=== PATIENT | male | born 1955 | race Caucasian/White ===

== ENCOUNTER 2021-01-06 08:05 | Emergency (ER) | payer OTHER ==
[~2021-01-06] VITALS: Ht 177.8 cm; Wt 60.0 kg
[2021-01-06 08:58] VITALS: BP 110/89
[2021-01-06 09:11] LABS: HEMATOCRIT 42.9 % (39.0-50.0); HEMOGLOBIN 13.6 g/dl (14.0-18.0); IMMATURE GRANULOCYTES 0.4 % (0.0-5.0); MEAN CELL VOLUME 93.1 fL CALC (80.0-100.0); MEAN CORPUSCULAR HGB 29.5 pG CALC (26.0-32.0); MEAN CORPUSCULAR HGB CONC 31.7 g/dL CAL (32.0-36.0); NEUT# 4.67 thou/uL (1.82-7.42); RED BLOOD COUNT 4.61 mill/uL (4.70-6.10); RED CELL DISTRI WIDTH 13.5 % (11.5-15.5)
[2021-01-06 09:26] LABS: ALBUMIN 4.1 g/dL (3.2-5.0); ALKALINE PHOSPHATASE 75 u/l (38-126); ANION GAP 11 (6-22 (CALC)); BILIRUBIN, TOTAL 0.5 mg/dL (0.0-1.4); BUN 14 mg/dL (8-23); BUN/CREATININE RATIO 16 (12-20 (CALC)); CARBON DIOXIDE 28 mmol/l (22-30); CHLORIDE 102 mmol/l (95-108); CREATININE 0.9 mg/dL (0.7-1.3); GFR > 60 ML/MIN (>=60 (CALC)); GFR FOR AFR.AMER. > 60 ML/MIN (>=60 (CALC)); POTASSIUM 4.2 mmol/l (3.5-5.1); SGOT/AST 21 u/l (19-48); SODIUM 138 mmol/l (137-146); TOTAL PROTEIN 7.2 g/dL (6.3-8.2)
[2021-01-06] MEDS ORDERED: AMOXICILLIN500 MG PO (09:29)
== END 2021-01-06 10:00 | disposition home or self-care (01) ==
LOC: ED 08:05
PROVIDERS: Emergency Medicine
DX: L03.115 Cellulitis of right lower limb (principal); I10 Essential (primary) hypertension; J44.9 Chronic obstructive pulmonary disease, unspecified; F17.210 Nicotine dependence, cigarettes, uncomplicated

== ENCOUNTER 2022-12-12 23:28 | Inpatient (IN) | payer MEDICARE, MEDICAID ==
[~2022-12-12] VITALS: Ht 177.8 cm; Wt 59.0 kg
[~2022-12-12 23:28] MED LIST: AMOXICILLIN500 MG PO
[2022-12-12 23:56] LABS: BASO% 0.6 % (0-3); EOS% 15.4 % (0-8); HEMOGLOBIN 13.4 g/dl (14.0-18.0); IMMATURE GRANULOCYTES 0.8 % (0.0-5.0); LYMPH% 11.2 % (15-41); MEAN CELL VOLUME 93.7 fL CALC (80.0-100.0); MEAN CORPUSCULAR HGB 29.2 pG CALC (26.0-32.0); MEAN CORPUSCULAR HGB CONC 31.2 g/dL CAL (32.0-36.0); MONO% 9.5 % (2-13); NEUT# 6.28 thou/uL (1.82-7.42); NEUT% 62.5 % (42-76); RED BLOOD COUNT 4.59 mill/uL (4.70-6.10); RED CELL DISTRI WIDTH 13.3 % (11.5-15.5)
[2022-12-13] VITALS (82 sets, daily range): BP systolic 88–136; BP diastolic 47–95
[2022-12-13 00:09] LABS: ALBUMIN 4.1 g/dL (3.2-5.0); ALKALINE PHOSPHATASE 100 u/l (38-126); ANION GAP 17 (6-22 (CALC)); BUN 15 mg/dL (8-23); BUN/CREATININE RATIO 18 (12-20 (CALC)); CARBON DIOXIDE 25 mmol/l (22-30); CHLORIDE 96 mmol/l (95-108); CREATININE 0.9 mg/dL (0.7-1.3); GFR FOR AFR.AMER. > 60 ML/MIN (>=60 (CALC)); GFR OTHER RACES > 60 ML/MIN (>=60 (CALC)); POTASSIUM 4.5 mmol/l (3.5-5.1); SODIUM 133 mmol/l (137-146); TOTAL PROTEIN 6.9 g/dL (6.3-8.2)
[2022-12-13 00:17] LABS: BILIRUBIN, TOTAL 0.2 mg/dL (0.2-1.3); SGOT/AST 52 u/l (19-48)
[2022-12-13 03:43] LABS: URINE BILIRUBIN - DIPSTICK NEGATIVE (NEGATIVE); URINE BLOOD DIPSTICK SMALL (NEGATIVE); URINE COLOR YELLOW; URINE GLUCOSE - DIPSTICK 250 mg/dL (NEGATIVE); URINE KETONE NEGATIVE (NEGATIVE); URINE LEUK ESTERASE NEGATIVE (NEGATIVE); URINE PROTEIN - DIPSTICK 30 mg/dL (NEG-TRACE); URINE SPECIFIC GRAVITY 1.025; URINE UROBILINOGEN - DIPSTICK 0.2 E.U./dL (0.2)
[2022-12-13 03:47] LABS: URINE NITRITE - DIPSTICK NEGATIVE (Negative)
[2022-12-13 03:51] LABS: URINE BACTERIA FEW hpf; URINE MUCUS FEW hpf (NONE-FEW); URINE SQUAMOUS EPITHELIAL CELL FEW EPI/hpf (0-FEW)
[2022-12-13] MEDS ORDERED: TELMISARTAN40 MG PO (05:08)
[2022-12-13] MEDS ORDERED: PROVENTIL HFA108 MCG (05:10)
[2022-12-13] MEDS ORDERED: NAPROXEN500 MG PO (05:11)
[2022-12-14] VITALS (23 sets, daily range): BP systolic 88–121; BP diastolic 51–92
[2022-12-14 05:39] LABS: HEMATOCRIT 37.3 % (39.0-50.0); HEMOGLOBIN 11.9 g/dl (14.0-18.0); MEAN CELL VOLUME 91.6 fL CALC (80.0-100.0); MEAN CORPUSCULAR HGB 29.2 pG CALC (26.0-32.0); MEAN CORPUSCULAR HGB CONC 31.9 g/dL CAL (32.0-36.0); RED BLOOD COUNT 4.07 mill/uL (4.70-6.10); RED CELL DISTRI WIDTH 13.4 % (11.5-15.5)
[2022-12-14 06:03] LABS: ALBUMIN 3.5 g/dL (3.2-5.0); ALKALINE PHOSPHATASE 61 u/l (38-126); ANION GAP 10 (6-22 (CALC)); BUN 19 mg/dL (8-23); BUN/CREATININE RATIO 26 (12-20 (CALC)); CARBON DIOXIDE 28 mmol/l (22-30); CHLORIDE 98 mmol/l (95-108); CREATININE 0.7 mg/dL (0.7-1.3); GFR FOR AFR.AMER. > 60 ML/MIN (>=60 (CALC)); GFR OTHER RACES > 60 ML/MIN (>=60 (CALC)); MAGNESIUM 1.7 mg/dL (1.6-2.3); POTASSIUM 4.6 mmol/l (3.5-5.1); SGOT/AST 33 u/l (19-48); SODIUM 131 mmol/l (137-146)
[2022-12-14 06:04] LABS: BILIRUBIN, TOTAL 0.1 mg/dL (0.2-1.3)
[2022-12-14] MEDS ORDERED: PROVENTIL HFA108 MCG IN (10:21)
[2022-12-14] MEDS ORDERED: PREDNISONE50 MG PO (10:22)
[2022-12-14] MEDS ORDERED: IPRATROPIU0.5 MG/3 M IN (10:22)
[2022-12-14] MEDS ORDERED: KEFLEX500 MG PO (10:23)
[2022-12-14] MEDS ORDERED: ZPAK PO (10:23)
[2022-12-14] MEDS ORDERED: MUCUS+CHES200 MG/10 PO (10:25)
[2022-12-14] MEDS ORDERED: NICOTINE TOP (10:48)
== END 2022-12-14 11:40 | disposition home or self-care (01) | DRG 193 ==
LOC: ED 23:28 → ED-I 12-13 03:59 → ED 12-13 04:05 → ICU 12-13 04:07 → ED 12-13 04:26 → ICU 12-14 11:40
PROVIDERS: Family Medicine; ADMIT Internal Medicine; ATTEND Internal Medicine
PROC: 5A09357 Assistance with Respiratory Ventilation, Less than 24 Consecutive Hours, Continuous Positive Airway Pressure (ICD-10-PCS; principal; 2022-12-12)
DX: J18.9 Pneumonia, unspecified organism (principal); J96.01 Acute respiratory failure with hypoxia; J96.02 Acute respiratory failure with hypercapnia; J44.1 Chronic obstructive pulmonary disease with (acute) exacerbation; J44.0 Chronic obstructive pulmonary disease with (acute) lower respiratory infection; I10 Essential (primary) hypertension; F17.210 Nicotine dependence, cigarettes, uncomplicated; Z86.16 Personal history of COVID-19; Z20.822 Contact with and (suspected) exposure to COVID-19
CPT/HCPCS: J1650

== ENCOUNTER 2024-05-15 09:40 | Inpatient (IN) | payer MEDICARE, MEDICAID ==
[~2024-05-15] VITALS: Ht 177.8 cm; Wt 58.4 kg
[2024-05-15] VITALS (62 sets, daily range): BP systolic 72–115; BP diastolic 43–85
[~2024-05-15 09:40] MED LIST changes: +IPRATROPIU0.5 MG/3 M IN; +KEFLEX500 MG PO; +MUCUS+CHES200 MG/10 PO; +NAPROXEN500 MG PO; +NICOTINE TOP; +PREDNISONE50 MG PO; +PROVENTIL HFA108 MCG; +PROVENTIL HFA108 MCG IN; +TELMISARTAN40 MG PO; +ZPAK PO
[2024-05-15] MEDS ORDERED: IPRATROPIUM-Albuterol 0.5MG-2.5MG/3 ML NEB ONE ×2 (09:45)
[2024-05-15] MEDS ORDERED: AZITHROMYCIN 500 MG in SODIUM CHLORIDE 0.9% 250 ML IV ONE (09:45)
[2024-05-15 10:25] LABS: HEMATOCRIT 33.2 % (39.0-50.0); IMMATURE GRANULOCYTES 0.7 % (0.0-5.0); LYMPH% 1.3 % (15-41); MEAN CELL VOLUME 86.9 fL CALC (80.0-100.0); MEAN CORPUSCULAR HGB 28.8 pG CALC (26.0-32.0); MEAN CORPUSCULAR HGB CONC 33.1 g/dL CAL (32.0-36.0); MONO% 0.8 % (2-13); NEUT# 21.12 thou/uL (1.82-7.42); NEUT% 97.2 % (42-76); RED BLOOD COUNT 3.82 mill/uL (4.70-6.10); RED CELL DISTRI WIDTH 14.7 % (11.5-15.5)
[2024-05-15] MEDS ORDERED: SODIUM CHLORIDE 0.9% 1,000 ML IV ONE ×2 (10:35→10:40)
[2024-05-15] MEDS ORDERED: NOREPINEPHRINE BITARTRATE 4 MG in DEXTROSE 5% 250 ML IV ONE (10:40)
[2024-05-15] MEDS ORDERED: SODIUM CHLORIDE 0.9% 500 ML IV ONE ×2 (10:40→13:50)
[2024-05-15 10:52] LABS: POTASSIUM 3.7 mmol/l (3.5-5.1)
[2024-05-15 10:58] LABS: ALBUMIN 2.1 g/dL (3.2-5.0); BILIRUBIN, TOTAL 1.6 mg/dL (0.2-1.3); CREATININE 2.9 mg/dL (0.7-1.3); TOTAL PROTEIN 4.6 g/dL (6.3-8.2)
[2024-05-15] MEDS ORDERED: CEFEPIME HYDROCHLORIDE 2 GM in SODIUM CHLORIDE 0.9% 100 ML IV ONE (11:10)
[2024-05-15 12:23] LABS: URINE BLOOD DIPSTICK Small (NEGATIVE); URINE COLOR Dark yellow; URINE GLUCOSE - DIPSTICK Negative (NEGATIVE); URINE KETONE Trace mg/dL (NEGATIVE); URINE LEUK ESTERASE Negative (NEGATIVE); URINE NITRITE - DIPSTICK Negative (Negative); URINE PROTEIN - DIPSTICK 100 mg/dL (NEG-TRACE)
[2024-05-15 12:29] LABS: URINE CASTS FEW lpf (NONE-RARE); URINE COARSE GRANULAR CAST MODERATE lpf; URINE RBC 0-2 RBC/hpf (0-5); URINE WBC 0-2 WBC/hpf (0-5)
[2024-05-15] MEDS ORDERED: MAGNESIUM HYDROXIDE 30 ML UDC PO PRN (13:45)
[2024-05-15] MEDS ORDERED: ACETAMINOPHEN 325 MG/TAB PO PRN (13:45)
[2024-05-15] MEDS ORDERED: SODIUM CHLORIDE 0.9% 1,000 ML IV PRN (13:45)
[2024-05-15] MEDS ORDERED: SODIUM CHLORIDE 0.9% 500 ML IV PRN (13:50)
[2024-05-15] MEDS ORDERED: NOREPINEPHRINE BITARTRATE 4 MG in DEXTROSE 5% 250 ML IV PRN (13:50)
[2024-05-15] MEDS ORDERED: methylPREDNISolone Sod Succ 40 MG/ML SDV IV SCH (14:00)
[2024-05-15] MEDS ORDERED: IPRATROPIUM BROMIDE 0.5 MG/2.5 ML SOL IN SCH (15:00)
[2024-05-15] MEDS ORDERED: LEVALBUTEROL HCL 1.25 MG/3 ML VIAL NEB SCH (15:00)
[2024-05-15] MEDS ORDERED: BENZOCAINE-MENTHOL (MOUTH-THRO 1 LOZ LOZ PO PRN (20:20)
[2024-05-15] MEDS ORDERED: Heparin SODIUM (Porcine) 5,000 UNITS/ML SDV SC SCH (21:00)
[2024-05-16] VITALS (48 sets, daily range): BP systolic 86–137; BP diastolic 55–88
[2024-05-16 05:01] LABS: HEMATOCRIT 29.9 % (39.0-50.0); IMMATURE GRANULOCYTES 1.1 % (0.0-5.0); LYMPH% 1.4 % (15-41); MEAN CELL VOLUME 85.4 fL CALC (80.0-100.0); MEAN CORPUSCULAR HGB 28.6 pG CALC (26.0-32.0); MEAN CORPUSCULAR HGB CONC 33.4 g/dL CAL (32.0-36.0); MONO% 1.2 % (2-13); NEUT# 22.48 thou/uL (1.82-7.42); NEUT% 96.3 % (42-76); RED BLOOD COUNT 3.5 mill/uL (4.70-6.10); RED CELL DISTRI WIDTH 15.1 % (11.5-15.5)
[2024-05-16 05:11] LABS: ALBUMIN 1.8 g/dL (3.2-5.0); ALKALINE PHOSPHATASE 138 u/l (38-126); ANION GAP 8 (6-22 (CALC)); BILIRUBIN, TOTAL 1.3 mg/dL (0.2-1.3); BUN 66 mg/dL (8-23); CARBON DIOXIDE 19 mmol/l (22-30); CHLORIDE 109 mmol/l (95-108); HDL CHOLESTEROL 15 mg/dL (39.0-59.0); POTASSIUM 3.2 mmol/l (3.5-5.1); SGOT/AST 34 u/l (19-48); SODIUM 133 mmol/l (137-146); TOTAL PROTEIN 4.2 g/dL (6.3-8.2); TOTAL TRIGLYCERIDES 34 mg/dl (0-149); VLDL CHOLESTROL 7 mg/dl (4-45 (CALC))
[2024-05-16 05:13] LABS: BUN/CREATININE RATIO 39 (12-20 (CALC)); CALCULATED LDLCHOLESTEROL 28 mg/dL (62-129 (CALC)); CHOLESTEROL HDL RATIO 3.3 (<4.4 (CALC)); CREATININE 1.7 mg/dL (0.7-1.3); ESTIMATED GFR 44 ML/MIN (>=90 (CALC)); MAGNESIUM 2.2 mg/dL (1.6-2.3); TOTAL CHOLESTEROL < 50 mg/dl (0-199)
[2024-05-16] MEDS ORDERED: POTASSIUM CHLORIDE 20MEQ 100 ML IV SCH (07:00)
[2024-05-16] MEDS ORDERED: CEFEPIME HYDROCHLORIDE 2 GM in SODIUM CHLORIDE 0.9% 100 ML IV SCH (08:30)
[2024-05-16] MEDS ORDERED: AZITHROMYCIN 500 MG in SODIUM CHLORIDE 0.9% 250 ML IV SCH (09:00)
[2024-05-16] MEDS ORDERED: NICOTINE TRANSDERMAL 21 MG/PATCH TD SCH (09:00)
[2024-05-17] VITALS (45 sets, daily range): BP systolic 92–142; BP diastolic 69–104
[2024-05-17 04:58] LABS: HEMOGLOBIN 9.3 g/dl (14.0-18.0); IMMATURE GRANULOCYTES 0.9 % (0.0-5.0); LYMPH% 1.6 % (15-41); MEAN CELL VOLUME 85.9 fL CALC (80.0-100.0); MEAN CORPUSCULAR HGB 28.5 pG CALC (26.0-32.0); MEAN CORPUSCULAR HGB CONC 33.2 g/dL CAL (32.0-36.0); NEUT# 17.54 thou/uL (1.82-7.42); NEUT% 95.5 % (42-76); RED BLOOD COUNT 3.26 mill/uL (4.70-6.10); RED CELL DISTRI WIDTH 15.5 % (11.5-15.5)
[2024-05-17 05:10] LABS: ALBUMIN 1.7 g/dL (3.2-5.0); CREATININE 1.4 mg/dL (0.7-1.3); MAGNESIUM 2.5 mg/dL (1.6-2.3); POTASSIUM 3.6 mmol/l (3.5-5.1); TOTAL PROTEIN 4.3 g/dL (6.3-8.2)
[2024-05-17 05:32] LABS: C-REACTIVE PROTEIN 23.2 mg/dL (0-0.9)
[2024-05-18] VITALS (11 sets, daily range): BP systolic 116–146; BP diastolic 50–111
[2024-05-18 04:26] LABS: ALBUMIN 1.9 g/dL (3.2-5.0); BILIRUBIN, TOTAL 0.6 mg/dL (0.2-1.3); CREATININE 1.2 mg/dL (0.7-1.3); MAGNESIUM 2.4 mg/dL (1.6-2.3); TOTAL PROTEIN 4.5 g/dL (6.3-8.2)
[2024-05-18 04:36] LABS: HEMATOCRIT 28.1 % (39.0-50.0); HEMOGLOBIN 9.4 g/dl (14.0-18.0); MEAN CORPUSCULAR HGB 29.1 pG CALC (26.0-32.0); MEAN CORPUSCULAR HGB CONC 33.5 g/dL CAL (32.0-36.0); RED BLOOD COUNT 3.23 mill/uL (4.70-6.10); RED CELL DISTRI WIDTH 15.8 % (11.5-15.5)
[2024-05-19] VITALS (9 sets, daily range): BP systolic 105–127; BP diastolic 61–96
[2024-05-19 05:05] LABS: HEMATOCRIT 28.2 % (39.0-50.0); HEMOGLOBIN 9.3 g/dl (14.0-18.0); MEAN CELL VOLUME 88.1 fL CALC (80.0-100.0); MEAN CORPUSCULAR HGB 29.1 pG CALC (26.0-32.0); RED BLOOD COUNT 3.2 mill/uL (4.70-6.10); RED CELL DISTRI WIDTH 15.9 % (11.5-15.5)
[2024-05-19 05:24] LABS: ALBUMIN 1.9 g/dL (3.2-5.0); BILIRUBIN, TOTAL 0.5 mg/dL (0.2-1.3); CREATININE 0.9 mg/dL (0.7-1.3); MAGNESIUM 2.1 mg/dL (1.6-2.3); POTASSIUM 4.5 mmol/l (3.5-5.1); TOTAL PROTEIN 4.6 g/dL (6.3-8.2)
[2024-05-20] VITALS (8 sets, daily range): BP systolic 111–120; BP diastolic 69–77
[2024-05-20 05:48] LABS: HEMOGLOBIN 8.6 g/dl (14.0-18.0); MEAN CELL VOLUME 89.1 fL CALC (80.0-100.0); MEAN CORPUSCULAR HGB 28.4 pG CALC (26.0-32.0); MEAN CORPUSCULAR HGB CONC 31.9 g/dL CAL (32.0-36.0); RED BLOOD COUNT 3.03 mill/uL (4.70-6.10); RED CELL DISTRI WIDTH 15.8 % (11.5-15.5)
[2024-05-20 06:07] LABS: ALBUMIN 1.9 g/dL (3.2-5.0); BILIRUBIN, TOTAL 0.4 mg/dL (0.2-1.3); CREATININE 0.7 mg/dL (0.7-1.3); MAGNESIUM 1.8 mg/dL (1.6-2.3); POTASSIUM 4.3 mmol/l (3.5-5.1); TOTAL PROTEIN 4.6 g/dL (6.3-8.2)
[2024-05-20] MEDS ORDERED: PIPERACILLIN Sodium-Tazobactam 4.5 GM in SODIUM CHLORIDE 0.9% 100 ML IV SCH (10:00)
[2024-05-21] VITALS: BP 101/63
[2024-05-21 04:42] VITALS: BP 102/64
[2024-05-21 06:01] LABS: HEMATOCRIT 27.8 % (39.0-50.0); HEMOGLOBIN 9.1 g/dl (14.0-18.0); MEAN CELL VOLUME 88.8 fL CALC (80.0-100.0); MEAN CORPUSCULAR HGB 29.1 pG CALC (26.0-32.0); MEAN CORPUSCULAR HGB CONC 32.7 g/dL CAL (32.0-36.0); RED BLOOD COUNT 3.13 mill/uL (4.70-6.10); RED CELL DISTRI WIDTH 15.8 % (11.5-15.5)
[2024-05-21 06:10] LABS: ALBUMIN 1.8 g/dL (3.2-5.0); BILIRUBIN, TOTAL 0.4 mg/dL (0.2-1.3); CREATININE 0.7 mg/dL (0.7-1.3); MAGNESIUM 1.6 mg/dL (1.6-2.3); POTASSIUM 4.1 mmol/l (3.5-5.1); TOTAL PROTEIN 4.3 g/dL (6.3-8.2)
[2024-05-21 07:39] VITALS: BP 110/64
[2024-05-21 15:23] VITALS: BP 108/68
[2024-05-21 18:11] VITALS: BP 130/60
[2024-05-21 18:30] VITALS: BP 130/60
[2024-05-22] VITALS (9 sets, daily range): BP systolic 92–133; BP diastolic 49–80
[2024-05-22 05:19] LABS: HEMATOCRIT 28.4 % (39.0-50.0); HEMOGLOBIN 8.7 g/dl (14.0-18.0); MEAN CELL VOLUME 92.8 fL CALC (80.0-100.0); MEAN CORPUSCULAR HGB 28.4 pG CALC (26.0-32.0); MEAN CORPUSCULAR HGB CONC 30.6 g/dL CAL (32.0-36.0); RED BLOOD COUNT 3.06 mill/uL (4.70-6.10); RED CELL DISTRI WIDTH 16.2 % (11.5-15.5)
[2024-05-22 06:17] LABS: ALBUMIN 1.9 g/dL (3.2-5.0); BILIRUBIN, TOTAL 0.5 mg/dL (0.2-1.3); CREATININE 0.6 mg/dL (0.7-1.3); MAGNESIUM 1.7 mg/dL (1.6-2.3); TOTAL PROTEIN 4.6 g/dL (6.3-8.2)
[2024-05-22] MEDS ORDERED: predniSONE 20 MG/TAB PO SCH (09:00)
[2024-05-22] MEDS ORDERED: PREDNISONE10 MG PO (09:01)
[2024-05-22] MEDS ORDERED: PIPERACILLIN SO1 INJ IV (09:01)
[2024-05-22] MEDS ORDERED: CARDIZEM30 MG PO (09:06)
[2024-05-22] MEDS ORDERED: ELIQUIS2.5 MG PO (09:06)
== END 2024-05-22 10:39 | DRG 871 ==
LOC: ED 09:40 → ED-I 12:41 → ED 13:31 → ICU 13:32 → MS2 05-20 16:15 → ICU 05-22 02:39
PROVIDERS: Family Medicine; Internal Medicine; ADMIT Student in an Organized Health Care Education/Training Program; ATTEND Student in an Organized Health Care Education/Training Program
PROC: 02HV33Z Insertion of Infusion Device into Superior Vena Cava, Percutaneous Approach (ICD-10-PCS; principal; 2024-05-15)
PROC: 0T9B70Z Drainage of Bladder with Drainage Device, Via Natural or Artificial Opening (ICD-10-PCS; 2024-05-15)
PROC: 3E043XZ Introduction of Vasopressor into Central Vein, Percutaneous Approach (ICD-10-PCS; 2024-05-15)
PROC: 5A0935A Assistance with Respiratory Ventilation, Less than 24 Consecutive Hours, High Flow/Velocity Cannula (ICD-10-PCS; 2024-05-15)
DX: A41.9 Sepsis, unspecified organism (principal); J15.1 Pneumonia due to Pseudomonas; R65.21 Severe sepsis with septic shock; J96.01 Acute respiratory failure with hypoxia; J44.0 Chronic obstructive pulmonary disease with (acute) lower respiratory infection; R64 Cachexia; Z68.1 Body mass index [BMI] 19.9 or less, adult; N17.9 Acute kidney failure, unspecified; J44.1 Chronic obstructive pulmonary disease with (acute) exacerbation; Z16.19 Resistance to other specified beta lactam antibiotics; I48.0 Paroxysmal atrial fibrillation; I95.9 Hypotension, unspecified; I10 Essential (primary) hypertension; F17.210 Nicotine dependence, cigarettes, uncomplicated; Z99.81 Dependence on supplemental oxygen; Z20.822 Contact with and (suspected) exposure to COVID-19
CPT/HCPCS: J0456; J0692